=== PATIENT | female | born 2000 | race Caucasian/White ===

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

== ENCOUNTER → 2022-04-18 | Outpatient (CLI) | payer BC | LOC: KOH-I 11:38 | DX: R05.3 Chronic cough (principal) | CPT/HCPCS: 71046 ==